=== PATIENT | female | born 1960 | race Caucasian/White ===

== ENCOUNTER 2025-06-14 15:27 | Outpatient (CLI) | payer BC, SELFPAY ==
--- NOTE | ~2025-06-14 | XR_ITS ---
EXAMINATION: XR tibia fibula RT 2V, 06/14/2025 15:46 CDT HISTORY: pain with palpation/rule out stress fracture, pain x 3 weeks COMPARISON: No comparisons available. Findings: No acute fracture or malalignment. No significant degenerative changes. Soft tissues unremarkable. Impression: No acute fracture or malalignment. Reviewed, dictated and finalized at location P. Impression: No acute fracture or malalignment.
== END 2025-06-14 15:28 | disposition home or self-care (01) ==
LOC: GOSHIMG 15:31
PROVIDERS: PCP Chiropractor; Visit Provider Chiropractor
DX: M79.661 Pain in right lower leg (principal)
CPT/HCPCS: 73590